=== PATIENT | male | born 1965 | race Caucasian/White ===

== ENCOUNTER 2024-07-30 07:06 | Emergency (ER) | payer OTHER, SELFPAY ==
[2024-07-30 07:07] VITALS: BP 128/91
[2024-07-30 07:34] VITALS: BMI 25.2
[2024-07-30 07:49] LABS: % Basophils 0.3 % (0-2); % Eosinophils 1.1 % (0-6); % Immature Granulocytes 0.5 % (0-0.5); % Lymphocytes 18.6 % (20.5-51.1); % Neutrophils 73.5 % (42.2-75.2); Absolute Eosinophils 0.1 10^3/uL (0-0.7); Absolute Immature Granulocytes 0.1 10^3/uL (0-0.05); Absolute Lymphocytes 2.1 10^3/uL (1.2-3.4); Absolute Monocytes 0.7 10^3/uL (0.1-0.6); Absolute Neutrophils 8.1 10^3/uL (1.4-6.5); Hematocrit 46.4 % (39.0-52.0); Mean Corp Hgb Conc. 34.5 g/dL (33.0-37.0); Mean Corpuscular Hgb 27.2 pg (27.0-31.0); Mean Corpuscular Volume 78.9 fL (80.0-94.0); Mean Platelet Volume 10.8 fL (7.4-10.4); Nucleated Red Blood Cells % 0 % (-); Platelet Count 181 10^3/uL (130-400); Red Blood Cell Count 5.88 10^6/uL (4.70-6.10); Red Cell Dist. Width 14.6 % (11.5-14.5); White Blood Cell Count 11.1 10^3/uL (4.8-10.8)
[2024-07-30 08:12] LABS: ALT (SGPT) 28 U/L (0-50); AST (SGOT) 21 U/L (17-59); Albumin 4.5 g/dl (3.5-5.0); Alkaline Phosphatase 66 U/L (38-126); Blood Urea Nitrogen 24 mg/dl (9-20); Calcium 9.9 mg/dl (8.4-10.2); Carbon Dioxide 28 mmol/L (22-30); Chloride 100 mmol/L (98-107); Estimated Creatinine Clearance 117 ml/min; Glucose 164 mg/dl (70-99); Potassium 3.7 mmol/L (3.5-5.1); Sodium 136 mmol/L (135-145); Total Bilirubin 0.9 mg/dl (0.2-1.3); Total Protein 7.7 g/dl (6.3-8.2); eGFR > 60.00
--- NOTE | 2024-07-30 08:33 | ED.GENMED ---
History of Present Illness
General
Chief Complaint: Abdominal Symptoms
Source: patient
Exam Limitations: none
Time Seen by Provider: 07/30/24 07:17
Nursing documentation reviewed up to this point in time: agreed with
History of Present Illness
History of Present Illness:
59-year-old male past medical history of diabetes hypertension presenting to the emergency department today with concerns of diarrhea with abdominal pain and concerns of blood in the stool. Claims that symptoms started this morning. Has some
ongoing pain. Multiple loose bowel movements and a red tinge with most recent bowel movement. Not on blood thinners.
Past History
Past History
ED Past Medical History: HTN and NIDDM
ED Past Surgical History: None
Social History
Tobacco: Non-smoker
Alcohol: None
Drug: None
Personal:
Living: with family
Employment: Employed
Family History
Family History: Diabetes
Review of Systems
Review of Systems
Allergies reviewed?: Yes
All Other Systems: ROS reviewed and negative except as documented in HPI and ROS
Phy Exam
Physical Exam
Physical Exam:
GENERAL: Alert , in no apparent distress
EYE: pupils equal and reactive
NECK: Supple, no significant adenopathy.
ENT: o/p clr, mmm.
CARDIAC: Regular rate and rhythm .
LUNGS: Clear breath sounds bilaterally, no acute respiratory distress, no wheezes/rales/rhonchi
ABDOMEN: Rectal exam normal brown stool guaiac negative, mild pain to left lower quadrant otherwise soft abdomen
NEUROLOGICAL: Alert and oriented, no focal neuro deficits
SKIN: Warm and dry, skin intact.
MUSCULOSKELETAL: No edema, well perfused.
PSYCH: Normal and appropriate interaction.
Course
Orders/Labs/Results
Orders:
Orders
07/30/24 07:25
CT Abd/Pel (IV only)-[facility] only Urgent
Comment:
Reason For Exam: llq pain,
07/30/24 07:40
Complete Blood Count/With Diff Urgent
Comprehensive Metabolic Panel Urgent
07/30/24 09:33
Urinalysis Reflex To Culture Urgent
Date Specimen was Collected: 07/30/24
Time Specimen was Collected: 09:32
Urine Microscopic Reflex Cult Urgent
07/30/24 10:40
Lactic Acid Urgent
Abnormal Lab Results
07/30/24 07/30/24
07:40 09:33
WBC 11.1 H 10^3/uL
(4.8-10.8)
MCV 78.9 L fL
(80.0-94.0)
RDW 14.6 H %
(11.5-14.5)
MPV 10.8 H fL
(7.4-10.4)
Abs Immat Gran (auto) 0.1 H 10^3/uL
(0-0.05)
Absolute Neuts (auto) 8.1 H 10^3/uL
(1.4-6.5)
Absolute Monos (auto) 0.7 H 10^3/uL
(0.1-0.6)
Lymphocytes % 18.6 L %
(20.5-51.1)
BUN 24 H mg/dl
(9-20)
Glucose 164 H mg/dl
(70-99)
Urine Albumin (Reflex) 1+ A
(Neg - Trace)
07/30/24 07:40
07/30/24 07:40
Vital Signs
Initial and Last Documented VS:
Initial Vital Signs
Temp Pulse Resp BP Pulse Ox
98.4 F 100 18 128/91 99
07/30/24 07:07 07/30/24 07:07 07/30/24 07:07 07/30/24 07:07 07/30/24 07:07
Last Documented Vital Signs
Temp Pulse Resp BP Pulse Ox
98.4 F 79 18 142/88 94
07/30/24 07:07 07/30/24 09:34 07/30/24 07:07 07/30/24 09:35 07/30/24 09:34
MDM/Problems Addressed
MDM/Problems Addressed:
59-year-old male presenting to the emergency department today with concerns of diarrhea starting this morning some crampy lower abdominal pain some red tinge after having bowel movement. No vomiting. Here minimal discomfort to the lower abdomen.
Rectal examination without emergent findings. CT scan ordered for further assessment.
*Critical Care Note
Total Time (30-74mins, 75-104mins- exclusive of procedures): Not Applicable
ED Attending Note
-
Portions of this chart may have been created with voice recognition software.� Occasional wrong word or��sound alike� substitutions may have occurred due to the inherent limitations of voice recognition software.
Discharge Plan
Departure
Patient Disposition: Home (Routine Discharge)
Date of Disposition: 07/30/24
Time of Disposition: 12:19
Patient with high blood pressure during this ER visit?: No
Condition: Good
Covid-19: Not Applicable
Discharge Problem:
Colitis, Bone lesion
Instructions: Colitis - Discharge instructions, Bone scan
Prescriptions:
New
amoxicillin-pot clavulanate 875-125 mg tablet
1 tab PO BID 7 Days Qty: 14 0RF
No Action
chlorthalidone 25 mg Tablet
25 mg PO DAILY
amlodipine [Norvasc] 5 mg Tablet
5 mg PO DAILY
aspirin 81 mg Tablet,Delayed Release (Dr/Ec)
81 mg PO DAILY
lisinopril 30 mg Tablet
30 mg PO DAILY
metoprolol succinate [Toprol XL] 25 mg Tablet Extended Release 24 Hr
25 mg PO DAILY
metformin 750 mg Tablet Extended Release 24 Hr
750 mg PO DAILY
potassium citrate 15 mEq Tablet Extended Release
15 meq PO BID
Mounjaro 15 mg/0.5 mL Pen Injector
15 mg SC HODGE
Referrals:
Syeda Flower MD [Active] - Follow up in 5-7 days
Geovany Fair DO [Family Provider] -
Activity Restrictions/Additional Instructions:
You came to the emergency department today with concerns of diarrhea. You were found to have colitis. Please take the prescribed antibiotic and follow-up close with the primary care doctor for this. Otherwise you were found to have multiple bone
lesions. Please follow closely with oncology for further assessment of this. Return for any worsening, new or concerning symptoms.
Interventions
Interventions:
*Risk Screen - Suicide Last Done: 07/30/24 07:07
*General Assessment Last Done: 07/30/24 07:07
*Neglect/Abuse Screening Last Done: 07/30/24 07:07
*ED- Fall Risk Assessment Last Done: 07/30/24 08:03
*ED COVID-19 Vaccine History Last Done: 07/30/24 08:03
TP-Tvobxq-Szpqdliitp Assessment Last Done: 07/30/24 08:04
Discharge Date and Time
Print Language: [id number]
[2024-07-30 09:33] VITALS: BP 142/88
[2024-07-30 09:35] VITALS: BP 142/88
[2024-07-30 10:15] LABS: Urine Albumin 1+ (Neg - Trace); Urine Bilirubin Negative (Negative); Urine Character Clear (Clear); Urine Color Yellow; Urine Glucose Negative (Negative); Urine Ketone Negative (Negative); Urine Leukocyte Negative (Negative); Urine Nitrite Negative (Negative); Urine Occult Blood Negative (Negative); Urine Urobilinogen Negative (Neg - 1+)
[2024-07-30 11:02] LABS: Lactic Acid 1.1 mmol/L (0.7-2.0)
[2024-07-30 11:43] LABS: Urine Squamous Cell 0-2 /LPF (Few)
[2024-07-30 11:44] LABS: Urine Amorphous Seen; Urine Hyaline Cast 0-2 /LPF (0-2)
[2024-07-30 11:45] LABS: Urine Red Blood Cell 0-2 /HPF (0-2); Urine White Cell 0-2 /HPF (0-5)
[2024-07-30 12:17] VITALS: BP 125/83
[2024-07-30] MEDS: AUGMENTIN 875 MG/125 MG 1 TABLET PO (12:28)
[2024-07-30 13:10] VITALS: BP 125/83
== END 2024-07-30 13:10 | disposition home or self-care (01) ==
LOC: EMR 07:06
PROVIDERS: Physician Assistant; EMERGENCY PHYSICIAN Emergency Medicine; FAMILY PHYSICIAN Family Medicine
DX: K52.9 Noninfective gastroenteritis and colitis, unspecified (principal); M89.9 Disorder of bone, unspecified; E11.9 Type 2 diabetes mellitus without complications; I10 Essential (primary) hypertension; K92.1 Melena; Z83.3 Family history of diabetes mellitus; Z90.5 Acquired absence of kidney
CPT/HCPCS: 99284; 74177; 80053; 81003; 81015; 83605; 85025; Q9967